=== PATIENT | female | born 1985 | race Caucasian/White ===

== ENCOUNTER 2017-10-14 15:25 | Emergency (ER) | payer MEDICAID ==
[~2017-10-14] VITALS: Ht 175.3 cm; Wt 72.6 kg
--- NOTE | 2017-10-14 15:50 | NUR ---
dr keys at the bedside for eval and exam.
[2017-10-14 16:08] VITALS: BP 132/92
--- NOTE | 2017-10-14 16:09 | NUR ---
Patient discharged to home in stable conditon. Written and verbal after care instructions given. Patient verbalizes understanding of instructions.
== END 2017-10-14 16:10 | disposition home or self-care (01) ==
LOC: ER 15:25
DX: F15.10 Other stimulant abuse, uncomplicated (principal); F17.200 Nicotine dependence, unspecified, uncomplicated
CPT/HCPCS: 99281; A4663

== ENCOUNTER 2022-01-10 03:33 | Emergency (ER) | payer MEDICAID, OTHER ==
[~2022-01-10] VITALS: Ht 170.2 cm; Wt 81.2 kg
--- NOTE | 2022-01-10 03:34 | NUR ---
IN BIB FRIEND AMBULATED TO ER WITH C/O ALLERGIC REACTION. ALSO NOTED WITH BRUISE ON RT EYE AND SWOLLEN LIPS, NO SOB OR LABORED BREATHING, AFEBRILE. PT A/O X2, BUT ADMITTED TO [employer]ING [employer] ATTEND[employer]. CLEAR SPEECH, COMPLETE SENTENCES BUT SLOW TO SPEAK. DENIES ANY CP/PRESSURE. HAND DENTAL INSURANCE COORDINATOR BILATERALLY EQUAL, ABLE TO FOLLOW INSTRUCTIONS.
--- NOTE | 2022-01-10 03:41 | NUR ---
DR. MELENDEZ AT BEDSIDE, MSE IN PROGRESS.
[2022-01-10] MEDS ORDERED: IV NORMAL SALINE 1000 ML BAG IV ONE (03:45)
[2022-01-10] MEDS ORDERED: ONDANSETRON 4 MG/2 ML VIAL IV ONE (03:45)
[2022-01-10] MEDS ORDERED: ONDANSETRON 4 MG/2 ML VIAL ONE (04:21)
--- NOTE | 2022-01-10 04:41 | NUR ---
PT TAKEN DOWN FOR CT.
--- NOTE | 2022-01-10 05:02 | NUR ---
PT RETURNED FROM CT.
[2022-01-10] MEDS ORDERED: HYDR-4209 PO (05:20)
--- NOTE | 2022-01-10 05:48 | NUR ---
Patient discharged to home in stable condition. Written and verbal after care instructions given. Patient verbalizes understanding of instructions. Stressed follow up or return to ER for worsening s/s. Steady gait. A/O x4, no SOB or labored breathing. Picked up by friend.
[2022-01-10 05:51] VITALS: BP 134/86
== END 2022-01-10 05:52 | disposition home or self-care (01) ==
LOC: ER 03:37
DX: S00.11XA Contusion of right eyelid and periocular area, initial encounter (principal); S00.531A Contusion of lip, initial encounter; X58.XXXA Exposure to other specified factors, initial encounter; Y93.E1 Activity, personal bathing and showering; Y92.59 Other trade areas as the place of occurrence of the external cause; F10.129 Alcohol abuse with intoxication, unspecified; Z20.822 Contact with and (suspected) exposure to COVID-19; F17.210 Nicotine dependence, cigarettes, uncomplicated; F19.10 Other psychoactive substance abuse, uncomplicated; Z59.01 Sheltered homelessness; R03.0 Elevated blood-pressure reading, without diagnosis of hypertension
CPT/HCPCS: 70450; 70486; 71045; 72125; 87426; 93005; 96374; 99285; J2405; A4663